=== PATIENT | male | born 1990 | race American Indian/Alaskan Native ===

== ENCOUNTER 2017-10-08 01:47 | Emergency (ER) | payer SELFPAY ==
[2017-10-08 02:32] VITALS: BP 126/84
--- NOTE | 2017-10-08 03:16 | XRay Report ---
FINAL REPORT EXAM: XR HAND 3+V LT HISTORY: trauma TECHNIQUE: Three views of the left hand were submitted. FINDINGS: There is no evidence of acute fracture or dislocation. The wrist joint is not show any acute changes. The soft tissues are unremarkable. IMPRESSION: Within normal limits. If localized pain persists repeat study is recommended 7-10 days to evaluate for occult fracture.
[2017-10-08] MEDS ORDERED: MOTRIN ONE (03:22)
[2017-10-08] MEDS ORDERED: MOTRIN PO ONE (03:27)
== END 2017-10-08 07:19 ==
LOC: ED 01:47
DX: M79.645 Pain in left finger(s) (principal); Z53.21 Procedure and treatment not carried out due to patient leaving prior to being seen by health care provider

== ENCOUNTER 2019-02-19 10:19 | Emergency (ER) | payer SELFPAY ==
[2019-02-19 11:34] VITALS: BP 143/84
--- NOTE | 2019-02-19 11:39 | Emergency Department Report ---
Chief Complaint: Skin Rash Stated Complaint: RASH ON BACK/GENITALS DISCOMFORT Time Seen by Provider: 02/19/19 11:34 - HPI History of Present Illness: This is a 28-year-old male nontoxic, well in appearance with no signs of distress presents to the ED for a penile rash. Denies any penile discharge. Patient stated he is asymptotic. Denies any penile discharge, testicular pain, or swelling. Patient denies any urinary symptoms. Patient denies any fever, chills, headache, nausea, vomiting, chest pain or shortness of breathe. denies any other symptoms or complaints. Denies any allergies or PMH. - Exam Vital Signs: Vital Signs 02/19/19 11:32 Temperature 98.4 F Pulse Rate 64 Respiratory 20 Rate Blood Pressure 143/84 O2 Sat by Pulse 100 Oximetry Physical Exam: Genital warts noted on the penile shaft. No penile discharge. no ulcers or lesions. No tenderness. No testicular pain or swelling. No urinary symptroms. Jerri Dobbins RN present during exam. MSE screening note: Focused history and physical exam performed. Due to findings the following was ordered: ED Medical Decision Making - Medical Decision Making This is a 28-year-old male that presents with genital warts. Patient denies any symptoms. I gave patient many different referrals to follow-up for genital warts. Patient was instructed to Follow-up with a primary care doctor in 3-5 days or if symptoms worsen and continue return to emergency room as soon as possible. At time of discharge, the patient does not seem toxic or ill in appearance. No acute signs of distress noted. Patient agrees to discharge treatment plan of care. No further questions noted by the patient. ED Disposition for [facility] Clinical Impression: Genital warts Disposition: Z-01 MED SCREENING EXAM-CONT Is pt being admited?: No Does the pt Need Aspirin: No Condition: Stable Instructions: Genital Warts (ED) Additional Instructions: Follow-up with the referrals that was provided to you during your ED visit today or if symptoms worsen and continue return to the emergency department as soon as possible. Prescriptions: Imiquimod [Aldara 5%] 1 applicatio TP ONCE #1 cream.pack Referrals: PRIMARY CARE, [Primary Care Provider] - 3-5 Days GENARO MAE MD [Staff Physician] - 3-5 Days [facility] [Outside] - 3-5 Days [facility] [Outside] - 3-5 Days Forms: Work/School Release Form(ED)
== END 2019-02-19 12:00 | disposition home or self-care (01) ==
LOC: ED 10:19
DX: A63.0 Anogenital (venereal) warts (principal)